=== PATIENT | female | born 1970 | race African-American/Black ===

== ENCOUNTER → 2019-01-15 | Outpatient (CLI) | payer OTHER ==
--- NOTE | 2019-01-16 12:37 | MM ---
Reason for exam: screening (asymptomatic). History: Family history of breast cancer in maternal grandmother. Physical Findings: A clinical breast exam by your physician is recommended on an annual basis and results should be correlated with mammographic findings. MG Screening Mammo w CAD Bilateral CC and MLO view(s) were taken. No prior studies available for comparison. The breast tissue is heterogeneously dense. This may lower the sensitivity of mammography. There is no discrete abnormality. No significant changes when compared with prior studies. ASSESSMENT: Negative, BI-RAD 1 RECOMMENDATION: Routine screening mammogram of both breasts in 1 year.
== END ==
LOC: RADMAMWWP 07:46
PROVIDERS: ATTEND Internal Medicine
DX: Z12.31 Encounter for screening mammogram for malignant neoplasm of breast (principal)
CPT/HCPCS: 77067

== ENCOUNTER → 2019-01-19 | Day surgery (SDC) | payer OTHER ==
[2019-01-13 15:59] VITALS: BMI 34.3
[~2019-01-19] MED LIST: LACTATED RINGERS 1,000 ML IV ONE; LACTATED RINGERS 1,000 ML IV SCH; LIDOCAINE 1% 20 ML VIAL (10MG/ML) FOR IV START INTRADERMA ONE; LIDOCAINE 1% INJ 10MG/ML (20 ML MDV) ONE; MIDAZOLAM 2 MG/2 ML VIAL ONE; PROPOFOL 10 MG/ML 20 ML VIAL IV ONE
[2019-01-19 08:59] VITALS: TEMP 98
--- NOTE | 2019-01-19 09:46 | P.GSHP ---
History of Present Illness H&P Date: 01/19/19 Chief Complaint: GERD, screening colonoscopy This a 48-year-old female who presents today for EGD. She's had issues with GERD. She will undergo EGD and screening colonoscopy today. Past Medical History Past Medical History: GERD/Reflux, Hypertension, Osteoarthritis (OA) Additional Past Medical History / Comment(s): [facility]LCER-2017 History of Any Multi-Drug Resistant Organisms: None Reported Additional Past Surgical History / Comment(s): CYST REMOVED FROM LEFT SHOULDER Past Anesthesia/Blood Transfusion Reactions: No Reported Reaction Smoking Status: Former smoker - Past Family History Father Family Medical History: Cancer Additional Family Medical History / Comment(s): COLON CANCER Medications and Allergies Home Medications Medication Instructions Recorded Confirmed Type Omeprazole 40 mg PO DAILY 01/13/19 01/13/19 History amLODIPine [Norvasc] 5 mg PO DAILY 01/19/19 01/19/19 History Allergies Allergy/AdvReac Type Severity Reaction Status Date / Time No Known Allergies Allergy Verified 01/13/19 15:13 Surgical - Exam Vital Signs Temp Pulse Resp BP Pulse Ox 98.0 F 88 18 129/71 99 01/19/19 08:58 01/19/19 08:58 01/19/19 08:58 01/19/19 08:58 01/19/19 08:58 - General well developed, well nourished, no distress - Eyes PERRL - ENT normal pinna - Neck no masses - Respiratory normal expansion - Cardiovascular Rhythm: regular - Abdomen Abdomen: soft, non tender Assessment and Plan Assessment: GERD. We'll perform EGD we'll also perform screening colonoscopy.
--- NOTE | 2019-01-19 10:07 | P.OP ---
Date of Procedure: 01/19/19 Preoperative Diagnosis: GERD Screening colonoscopy Postoperative Diagnosis: Antral gastritis Mild esophagitis Normal colon Procedure(s) Performed: EGD Colonoscopy Anesthesia: MAC Surgeon: Parish Heller Pathology: other (Antrum, esophagus) Condition: stable Disposition: PACU Description of Procedure: The patient's placed on the endoscopy table in the lateral position. She received IV sedation. The gastroscope placed oropharynx passed in the esophagus and stomach. Scope was then placed through the pylorus. The first and second portion of the duodenum appeared normal. Scope was then brought back the antrum and this appeared mildly inflamed. A biopsies performed. The scope was retroflexed and remainder of the stomach appeared normal. There was no significant hiatal hernia. The GE junction was at 47 is. The distal esophagus appeared mildly inflamed a biopsies performed. The proximal esophagus appeared normal. The scope was withdrawn for patient. Next digital rectal exam was performed which revealed no abnormalities. Flexible colonoscope was then placed patient anus passed throughout the entire colon. The ileocecal valve is not visualized secondary to tortuosity valve. Several attempts were made to to maneuver the scope into the cecum was impossible due to tortuosity. The scope was then withdrawn the remainder of the ascending colon transverse colon, descending colon and sigmoid colon appeared normal. Scope was brought back the rectum and this was normal. Scope was withdrawn for patient.
[2019-01-19 10:26] VITALS: BP 119/77; PULSE 78; RESP 16
--- NOTE | 2019-01-19 13:32 | NM ---
EXAMINATION TYPE: NM hepatobiliary w CCK DATE OF EXAM: 01/19/2019 COMPARISON: NONE HISTORY: Indigestion TECHNIQUE: After the intravenous administration of 5.27 mCi Tc 99m Mebrofenin hepatobiliary scintigra phy is performed. Immediate images post injection. FINDINGS: There is satisfactory initial accumulation of tracer by the liver. The gallbladder is visualized wit hin 14 minutes. The small bowel activity is noted within 38 minutes. At one hour CCK was administer ed, patient was injected with 1.85 mcg of Kinevac, and gallbladder ejection fraction is calculated at 88%. IMPRESSION: Increased gallbladder ejection fraction may reflect hypercontractile state. Correlate clinically.
== END ==
LOC: ORWHC2ENDO 08:38
PROVIDERS: ATTEND Surgery
DX: Z12.11 Encounter for screening for malignant neoplasm of colon (principal); K21.0 Gastro-esophageal reflux disease with esophagitis; K29.50 Unspecified chronic gastritis without bleeding; I10 Essential (primary) hypertension; M19.90 Unspecified osteoarthritis, unspecified site; Z87.891 Personal history of nicotine dependence; Z80.0 Family history of malignant neoplasm of digestive organs; Z79.899 Other long term (current) drug therapy
CPT/HCPCS: 81025; 88305; 78227; 43239; A9537; J2250; J2805; J2001; J2704; G0105; 45378

== ENCOUNTER → 2019-05-05 | Outpatient (CLI) | payer OTHER ==
--- NOTE | 2019-05-05 12:00 | ECHOF ---
Referral Reason:R60.0 bilateral leg edema, I10 hypertension MEASUREMENTS -------- HEIGHT: 162.6 cm WEIGHT: 90.7 kg BP: 115/75 RVIDd: 2.8 cm (< 3.3) IVSd: 1.3 cm (0.6 - 1.1) LVIDd: 4.5 cm (3.9 - 5.3) LVPWd: 1.2 cm (0.6 - 1.1) IVSs: 1.7 cm LVIDs: 2.8 cm LVPWs: 1.6 cm LA Diam: 3.5 cm (2.7 - 3.8) LAESV Index (A-L): 19.23 ml/m Ao Diam: 2.7 cm (2.0 - 3.7) AV Cusp: 1.9 cm (1.5 - 2.6) MV EXCURSION: 13.970 mm (> 18.000) MV EF SLOPE: 105 mm/s (70 - 150) EPSS: 0.5 cm MV E Walt: 1.00 m/s MV DecT: 279 ms MV A Walt: 0.94 m/s MV E/A Ratio: 1.07 RAP: 5.00 mmHg RVSP: 32.40 mmHg FINDINGS -------- Sinus rhythm. This was a technically good study. The left ventricular size is normal. There is mild concentric left ventricular hypertrophy. Overa ll left ventricular systolic function is normal with, an EF between 60 - 65 %. The right ventricle is normal in size. Normal LA size by volume 22+/-6 ml/m2. The right atrium is normal in size. Interatrial and interventricular septum intact. The aortic valve is trileaflet and appears structurally normal. There is trace to mild mitral regurgitation. Mild tricuspid regurgitation present. Right ventricular systolic pressure is normal at < 35 mmHg. Trace/mild (physiologic) pulmonic regurgitation. The aortic root size is normal. Normal inferior vena cava with normal inspiratory collapse consistent with estimated right atrial pre ssure of 5 mmHg. There is no pericardial effusion. CONCLUSIONS -------- 1. Sinus rhythm. 2. This was a technically good study. 3. The left ventricular size is normal. 4. There is mild concentric left ventricular hypertrophy. 5. Overall left ventricular systolic function is normal with, an EF between 60 - 65 %. 6. The right ventricle is normal in size. 7. Normal LA size by volume 22+/-6 ml/m2. 8. The right atrium is normal in size. 9. Interatrial and interventricular septum intact. 10. The aortic valve is trileaflet and appears structurally normal. 11. There is trace to mild mitral regurgitation. 12. Mild tricuspid regurgitation present. 13. Right ventricular systolic pressure is normal at < 35 mmHg. 14. Trace/mild (physiologic) pulmonic regurgitation. 15. The aortic root size is normal. 16. Normal inferior vena cava with normal inspiratory collapse consistent with estimated right atrial pressure of 5 mmHg. 17. There is no pericardial effusion. [employer]EL OPERATOR: Kaitlin Eng RDCS
== END | disposition home or self-care (01) ==
LOC: RADECHMAIN 11:22
PROVIDERS: ATTEND Internal Medicine
DX: I07.1 Rheumatic tricuspid insufficiency (principal); I10 Essential (primary) hypertension; R60.0 Localized edema
CPT/HCPCS: 93306

== ENCOUNTER 2019-08-24 08:50 | Day surgery (SDC) | payer OTHER ==
[2019-08-20 11:14] VITALS: BMI 34.3
[~2019-08-24 08:50] MED LIST changes: +DEXAMETHASONE SOD PHOSPHATE 10 MG/ML 1 ML VIAL IV ONE; +HYDROmorphone 0.5 MG/0.5 ML SYRINGE IVP PRN; -LACTATED RINGERS 1,000 ML IV ONE; -LIDOCAINE 1% 20 ML VIAL (10MG/ML) FOR IV START INTRADERMA ONE; +LIDOCAINE 1% 20 ML VIAL (10MG/ML) FOR IV START INTRADERMA PRN; -LIDOCAINE 1% INJ 10MG/ML (20 ML MDV) ONE; +MIDAZOLAM 2 MG/2 ML VIAL IV PRN; -MIDAZOLAM 2 MG/2 ML VIAL ONE; +ONDANSETRON 4 MG/2 ML VIAL IVP ONE; -PROPOFOL 10 MG/ML 20 ML VIAL IV ONE; +Pre Op ABX Message 1 EACH MISC MISCELLANE ONE; +SCOPOLAMINE 1.5MG/72HR PATCH TRANSDERM ONE
[2019-08-24 10:27] VITALS: TEMP 98.2
[2019-08-24] MEDS ORDERED: PROPOFOL 10 MG/ML 20 ML VIAL IV ONE (10:51)
[2019-08-24] MEDS ORDERED: MIDAZOLAM 2 MG/2 ML VIAL ONE (10:51)
[2019-08-24] MEDS ORDERED: fentaNYL (PF) 50 MCG/ML 2 ML AMP ONE (10:51)
[2019-08-24] MEDS ORDERED: LIDOCAINE 1% INJ 10MG/ML (20 ML MDV) SQ ONE (10:59)
[2019-08-24] MEDS ORDERED: BUPIVACAINE (PF) 0.5% 30 ML VIAL SQ ONE (10:59)
[2019-08-24 11:40] VITALS: PULSE 68
[2019-08-24 11:51] VITALS: BP 115/68; RESP 16
--- NOTE | 2019-08-24 18:01 | OP ---
OPERATIVE REPORT SURGERY DATE: 08/24/2019. PREOP DIAGNOSES: 1. Right carpal tunnel syndrome. 2. Mass, dorsal PIP joint, right index finger. FINAL DIAGNOSES: 1. Right carpal tunnel syndrome. 2. Mass, dorsal PIP joint, right index finger. PROCEDURES: 1. Right carpal tunnel release. 2. Excision of mass, dorsal PIP joint, right index finger. GROSS PATHOLOGY: The mass was 1 cm fibrous type mass contained within the skin. There was no affect of the deeper structures and no signs of infection. DESCRIPTION OF THE PROCEDURE: 49-year-old woman taken operative suite given IV sedation and both her carpal tunnel incision and a digital block anesthetic was performed with combination Xylocaine and Marcaine both without epinephrine. The hand was prepped and draped in usual manner. It was then elevated exsanguinated and cuff was inflated to 250 mmHg. Carpal tunnel release was done with a mini open technique. A 1-2 cm incision was made in the mid proximal palm. Under 4.5 loupe magnification, dissection was taken through the skin and subcutaneous tissue where the palmar fascia and transverse carpal ligaments were incised under direct vision. The limited view of the carpal canal was unremarkable. This wound was thoroughly irrigated. Attention was turned to the index finger. An elliptical incision was created over the mass which was removed with full-thickness skin. As stated above, there were no signs of infection and the mass did not penetrate through the skin and affect the deeper structures. The nature of the cyst is unknown based on direct inspection, but appeared benign. The wounds were thoroughly irrigated. Tourniquet was released. Both skin incisions were closed with 5-0 nylon suture. Soft bulky dressing was applied. She was taken to the recovery in satisfactory condition. MMODL / IJN: [id number] /
== END 2019-08-24 12:55 | disposition home or self-care (01) ==
LOC: OR 08:50
PROVIDERS: ATTEND Orthopaedic Surgery Hand Surgery
DX: G56.01 Carpal tunnel syndrome, right upper limb (principal); M25.841 Other specified joint disorders, right hand; I10 Essential (primary) hypertension; R63.5 Abnormal weight gain; Z79.899 Other long term (current) drug therapy; Z83.3 Family history of diabetes mellitus; Z82.49 Family history of ischemic heart disease and other diseases of the circulatory system; K21.9 Gastro-esophageal reflux disease without esophagitis
CPT/HCPCS: 81025; 88305; 64721; 11421; J2250; J1100; J2405; J2001; J3010; J2704

== ENCOUNTER → 2020-04-07 | Outpatient (CLI) | payer OTHER ==
--- NOTE | 2020-04-08 09:07 | MM ---
Reason for exam: screening (asymptomatic). Last mammogram was performed 1 year and 3 months ago. History: Family history of breast cancer in maternal grandmother. Physical Findings: A clinical breast exam by your physician is recommended on an annual basis and results should be correlated with mammographic findings. MG 3D Screening Mammo W/Cad Bilateral CC and MLO view(s) were taken. Prior study comparison: January 15, 2019, bilateral MG screening mammo w CAD. Benign appearing calcifications in the left breast. ASSESSMENT: Benign, BI-RAD 2 RECOMMENDATION: Routine screening mammogram of both breasts in 1 year.
== END | disposition home or self-care (01) ==
LOC: RADMAMWWP 09:19
PROVIDERS: ATTEND Internal Medicine
DX: Z12.31 Encounter for screening mammogram for malignant neoplasm of breast (principal)
CPT/HCPCS: 77063; 77067